=== PATIENT | female | born 1955 | race Caucasian/White ===

== ENCOUNTER 2017-06-11 17:14 | Emergency (ER) | payer OTHER ==
[~2017-06-11] VITALS: Ht 154.9 cm; Wt 71.0 kg
[2017-06-11 17:20] VITALS: BP 184/83; PULSE 67; RESP 17; TEMP 99.5; O2SAT 97
[2017-06-11] MEDS ORDERED: LISI-515 PO (17:33)
[2017-06-11] MEDS ORDERED: VOLT100T (17:33)
--- NOTE | 2017-06-11 17:42 | PD ---
HPI Chief Complaint: Skin Problem Time Seen by Provider: 17:41 Travel History International Travel<30 days: No Contact w/Intl Traveler<30days: No Traveled to known affect area: No History of Present Illness HPI 62-year-old female came to the emergency room with history of right leg pain. He that has been there for 15 days. Patient is having trouble walking because of the pain. No history of fever or chills. She had something similar 20 days ago and had seen her primary care physician. She was put on medication and that swelling had gone away and 5 days later this one appeared. She is here with her friend. No history of shortness of breath or chest pain. Patient had a temperature of 99 in triage. No history of trauma. [facility] Past Medical History Narrative Medical List of her past medical, surgical, social and family history is reviewed from the nursing note. Cardiovascular Problems: Yes (HTN) Hypertension: Yes ?: Not Social History Alcohol Use: Yes Tobacco Use: No Substance Use: No Allergies-Medications (Allergen,Severity, Reaction): Coded Allergies: No Known Allergies (Unverified , 06/11/17) Comments No known drug allergies. Reported Meds & Prescriptions Reported Meds & Active Scripts Active Keflex (Cephalexin) 250 Mg Cap 250 Mg PO Q6H 10 Days Reported Voltaren-Xr (Diclofenac Sodium) 100 Mg Tab.er.24h Lisinopril 20 Mg Tab 20 Mg PO DAILY Narrative Medication List of her home medications reviewed from the nursing note. Review of Systems Except as stated in HPI: all other systems reviewed are Neg Physical Exam Narrative GENERAL: Awake, alert, no obvious distress SKIN: Focused skin assessment warm/dry. Erythematous, warm, 3 x 3 cm indurated swelling on the right leg medial aspect just proximal to her knee. HEAD: Atraumatic. Normocephalic. EYES: Pupils equal and round. No scleral icterus. No injection or drainage. ENT: No nasal bleeding or discharge. Mucous membranes pink and moist. NECK: Trachea midline. No JVD. CARDIOVASCULAR: Regular rate and rhythm. No murmur appreciated. RESPIRATORY: No accessory muscle use. Clear to auscultation. Breath sounds equal bilaterally. GASTROINTESTINAL: Abdomen soft, non-tender, nondistended. Hepatic and splenic margins not palpable. MUSCULOSKELETAL: No obvious deformities. No clubbing. No cyanosis. No edema. NEUROLOGICAL: Awake and alert. No obvious cranial nerve deficits. Motor grossly within normal limits. Normal speech. PSYCHIATRIC: Appropriate mood and affect; insight and judgment normal. Data Data Last Documented VS Orders Orders Basic Metabolic Panel (Bmp) (06/11/17 17:49) Complete Blood Count With Diff (06/11/17 17:49) Blood Culture (06/11/17 17:49) Us Leg Venous Doppler (06/11/17 ) Ed Discharge Order (06/11/17 21:31) Cephalexin (Keflex) (06/11/17 21:45) Labs Laboratory Tests Test 06/11/17 18:02 White Blood Count 8.9 TH/MM3 Red Blood Count 3.98 MIL/MM3 Hemoglobin 11.7 GM/DL Hematocrit 34.8 % Mean Corpuscular Volume 87.5 FL Mean Corpuscular Hemoglobin 29.4 PG Mean Corpuscular Hemoglobin Concent 33.6 % Red Cell Distribution Width 12.0 % Platelet Count 338 TH/MM3 Mean Platelet Volume 7.6 FL Neutrophils (%) (Auto) 65.7 % Lymphocytes (%) (Auto) 22.5 % Monocytes (%) (Auto) 8.7 % Eosinophils (%) (Auto) 1.2 % Basophils (%) (Auto) 1.9 % Neutrophils # (Auto) 5.8 TH/MM3 Lymphocytes # (Auto) 2.0 TH/MM3 Monocytes # (Auto) 0.8 TH/MM3 Eosinophils # (Auto) 0.1 TH/MM3 Basophils # (Auto) 0.2 TH/MM3 CBC Comment DIFF FINAL Differential Comment Blood Urea Nitrogen 17 MG/DL Creatinine 0.73 MG/DL Random Glucose 131 MG/DL Calcium Level 8.8 MG/DL Sodium Level 136 MEQ/L Potassium Level 4.0 MEQ/L Chloride Level 103 MEQ/L Carbon Dioxide Level 27.4 MEQ/L Anion Gap 6 MEQ/L Estimat Glomerular Filtration Rate 80 ML/MIN [facility] Medical Decision Making Medical Screen Exam Complete: Yes Emergency Medical Condition: Yes Medical Record Reviewed: Yes Differential Diagnosis DVT, cellulitis, abscess Narrative Course 8:09 PM blood test results of back and within acceptable limits. Awaiting for ultrasound result. If patient is negative for DVT and abscess she will be put on antibiotics and discharged home with prescription. 9:32 PM ultrasound is negative for DVT or any abscess. She'll be discharged home on prescription for Keflex. Procedures EKG Prior to Arrival: No Diagnosis Primary Impression: Cellulitis Qualified Codes: L03.115 - Cellulitis of right lower limb Referrals: Primary Care Physician Additional Instructions: Take the medication as per the prescription direction. Return to ER if condition worsens or any other new concerns. Otherwise follow up with her primary care. Med/Other Pt SpecificInfo: Prescription(s) given Scripts Cephalexin (Keflex) 250 Mg Cap 250 MG PO Q6H for Infection for 10 Days, #40 CAP 0 Refills Prov: Janak Truong MD 06/11/17 Disposition: 01 DISCHARGE HOME Condition: Stable Janak Truong MD Jun 11, 2017 17:42
[2017-06-11 18:16] LABS: AUTOMATED NEUTROPHIL # 5.8 TH/MM3 (1.8-7.7); BASOPHIL # 0.2 TH/MM3 (0-0.2); BASOPHIL % 1.9 % (0.0-2.0); EOSINOPHIL # 0.1 TH/MM3 (0-0.4); EOSINOPHIL % 1.2 % (0.0-4.0); HEMATOCRIT 34.8 % (35.0-46.0); HEMOGLOBIN 11.7 GM/DL (11.6-15.3); LYMPH % 22.5 % (9.0-44.0); MEAN CELL VOLUME 87.5 FL (80.0-100.0); MEAN CORPUSCULAR HEMOGLOBIN 29.4 PG (27.0-34.0); MEAN CORPUSCULAR HGB CONC 33.6 % (32.0-36.0); MEAN PLATELET VOLUME 7.6 FL (7.0-11.0); MONO % 8.7 % (0.0-8.0); MONOCYTE # 0.8 TH/MM3 (0-0.9); NEUT % 65.7 % (16.0-70.0); PLATELET COUNT 338 TH/MM3 (150-450); RED BLOOD COUNT 3.98 MIL/MM3 (4.00-5.30); WHITE BLOOD COUNT 8.9 TH/MM3 (4.0-11.0)
[2017-06-11 18:26] LABS: BICARBONATE 27.4 MEQ/L (21.0-32.0); CALCIUM 8.8 MG/DL (8.5-10.1)
[2017-06-11 18:30] LABS: CREATININE 0.73 MG/DL (0.50-1.00)
--- NOTE | 2017-06-11 21:29 | RADRPT ---
EXAM DATE/TIME: 06/11/2017 19:36 [place] COMPARISON: No previous studies available for comparison. INDICATIONS : Right leg swelling. MEDICAL HISTORY : Hypertension. SURGICAL HISTORY : None. ENCOUNTER: Initial ACUITY: 1 day PAIN SCORE: 4/10 LOCATION: Right leg. TECHNIQUE: Venous ultrasound of the leg was performed from the inguinal ligament to the proximal calf. Real-tyree e, color Doppler and spectral tracing, compression and augmentation techniques were used. FINDINGS: There is normal compressibility of the deep venous system from the inguinal region to the proximal ca lf. No echogenic clot is seen in the lumen of the common femoral, femoral, popliteal, and posterior tibial veins. There is a normal response of the venous system to proximal and distal augmentation an d respiration. CONCLUSION: Normal examination. Jordan Stark MD on June 11, 2017 at 21:27 Board Certified Radiologist. This report was verified electronically.
[2017-06-11] MEDS ORDERED: CEPH-459 PO (21:33)
[2017-06-11 21:38] VITALS: BP 173/88; PULSE 84; RESP 16; O2SAT 96
[2017-06-11] MEDS ORDERED: CEPHALEXIN MONOHYDRATE 500 MG CAP PO ONE (21:45)
== END 2017-06-11 21:45 | disposition home or self-care (01) ==
LOC: PHEFT 17:14
DX: L03.115 Cellulitis of right lower limb (principal); I10 Essential (primary) hypertension; M79.89 Other specified soft tissue disorders
CPT/HCPCS: 80048; 85025; 87040; 93971; 99284